=== PATIENT | female | born 1970 | race Caucasian/White ===

== ENCOUNTER 2017-02-14 11:38 | Emergency (ER) | payer MEDICAID ==
[~2017-02-14] VITALS: Ht 165.1 cm; Wt 62.2 kg
[~2017-02-14 11:38] MED LIST: CARB200T PO; CLON-364 PO; CYCL-259 PO; GEODON; HYDR50TA13 PO; LITH300T3 PO; LITHIUM; MELO-184 PO; METH750T87 PO; ROBAXIN; SULF1TAB24 PO; SULF1TAB3 PO; VENL37.52 PO; ZIPR60CA2 PO; ZOLP10TA PO
[2017-02-14 11:42] VITALS: BP 146/92
[2017-02-14] MEDS ORDERED: IBUPROFEN 200 MG TABLET PO ONE (12:30)
[2017-02-14] MEDS ORDERED: METHOCARBAMOL 750 MG TABLET PO ONE (12:30)
[2017-02-14] MEDS ORDERED: HYDROcodone/APAP 5/325 TABLET PO ONE (12:30)
[2017-02-14] MEDS ORDERED: METHOCARBAMOL 750 MG TABLET ONE (12:39)
[2017-02-14] MEDS ORDERED: HYDROcodone/APAP 5/325 TABLET ONE (12:39)
[2017-02-14] MEDS ORDERED: IBUPROFEN 200 MG TABLET ONE (12:39)
== END 2017-02-14 13:05 | disposition home or self-care (01) ==
LOC: ED 12:59
DX: S29.012A Strain of muscle and tendon of back wall of thorax, initial encounter (principal); G89.29 Other chronic pain; M54.9 Dorsalgia, unspecified; Z72.9 Problem related to lifestyle, unspecified; F20.9 Schizophrenia, unspecified; F12.10 Cannabis abuse, uncomplicated; X58.XXXA Exposure to other specified factors, initial encounter; Y93.89 Activity, other specified; Y99.8 Other external cause status; Y92.89 Other specified places as the place of occurrence of the external cause
CPT/HCPCS: 99284

== ENCOUNTER 2017-03-15 15:26 | Emergency (ER) | payer OTHER ==
[~2017-03-15] VITALS: Ht 165.1 cm; Wt 57.7 kg
[2017-03-15] MEDS ORDERED: HYDROcodone/APAP 5/325 TABLET PO ONE (16:00)
[2017-03-15] MEDS ORDERED: KETOROLAC 30 MG/1 ML IM ONE ×2 (16:00)
[2017-03-15] MEDS ORDERED: OXYcodone/APAP 5/325MG TABLET PO ONE (16:00)
[2017-03-15] MEDS ORDERED: ONDANSETRON ODT 4 MG PO ONE (16:00)
[2017-03-15] MEDS ORDERED: CYCLOBENZAPRINE 10 MG TABLET PO ONE (16:00)
[2017-03-15] MEDS ORDERED: METHOCARBAMOL 750 MG TABLET PO ONE (16:00)
[2017-03-15] MEDS ORDERED: KETOROLAC 30 MG/1 ML ONE (16:11)
[2017-03-15] MEDS ORDERED: OXYcodone/APAP 5/325MG TABLET ONE (16:11)
[2017-03-15] MEDS ORDERED: METHOCARBAMOL 750 MG TABLET ONE (16:11)
[2017-03-15 16:29] VITALS: BP 118/79
== END 2017-03-15 16:31 | disposition home or self-care (01) ==
LOC: ED 16:10
DX: M54.5 Low back pain (principal)
CPT/HCPCS: 96372; 99283; J1885

== ENCOUNTER 2017-04-24 12:47 | Emergency (ER) | payer SELFPAY ==
[~2017-04-24] VITALS: Ht 162.6 cm; Wt 55.9 kg
[~2017-04-24 12:47] MED LIST changes: -MELO-184 PO; +MELO15TA24 PO; +SULF-169 PO; -SULF1TAB3 PO
[2017-04-24 12:50] VITALS: BP 137/86
[2017-04-24] MEDS ORDERED: DEXAMETHASONE 4 MG/ML, 5ML ONE (13:18)
[2017-04-24] MEDS ORDERED: DEXAMETHASONE 4 MG/ML, 1ML PO ONE (13:30)
[2017-04-24] MEDS ORDERED: HYDROcodone/APAP 5/325 TABLET ONE (14:17)
[2017-04-24] MEDS ORDERED: HYDROcodone/APAP 5/325 TABLET PO ONE (14:30)
== END 2017-04-24 14:25 | disposition home or self-care (01) ==
LOC: ED 14:20
DX: J20.9 Acute bronchitis, unspecified (principal); B96.89 Other specified bacterial agents as the cause of diseases classified elsewhere; R05 Cough; M25.511 Pain in right shoulder; G89.29 Other chronic pain
CPT/HCPCS: 71020; 73030; 99284; J1100

== ENCOUNTER 2019-01-13 07:19 | Emergency (ER) | payer MEDICAID ==
[~2019-01-13] VITALS: Ht 165.1 cm; Wt 61.2 kg
[~2019-01-13 07:19] MED LIST changes: -CLON-364 PO; +CLON0.5T11 PO
--- NOTE | 2019-01-13 08:01 | NUR ---
Pt to ER today for 1 wk of gen. malaise, nausea & LLQ pain elicited only w/ deep palpation. Recent dx of hep C discovered when she donated blood. Has not received f/u care yet. Labs drawn, urine sent.
[2019-01-13 08:08] LABS: BASOPHILS # (AUTO) 0.04 x10^3/uL (0-0.1); BASOPHILS % (AUTO) 1 % (0-1); EOSINOPHILS # (AUTO) 0.28 x10^3/uL (0-0.4); EOSINOPHILS % (AUTO) 5 % (1-7); LYMPHOCYTES # (AUTO) 1.34 x10^3/uL (1-3.4); LYMPHOCYTES % (AUTO) 21 % (22-44); MD NO; MEAN CORPUSCULAR HEMOGLOBIN 30.2 pg (27.0-34.8); MEAN CORPUSCULAR HGB CONC 32.9 g/dL (32.4-35.8); MEAN CORPUSCULAR VOLUME 91.9 fL (80-100); MEAN PLATELET VOLUME 8.7 fL (7.4-10.4); MONOCYTES # (AUTO) 0.87 x10^3/uL (0.2-0.8); MONOCYTES % (AUTO) 14 % (2-9); NEUTROPHILS # (AUTO) 3.85 x10^3/uL (1.8-6.8); NEUTROPHILS % (AUTO) 60 % (42-75); PLATELET COUNT 264 x10^3/uL (130-400); RED CELL DISTRIBUTION WIDTH 13.3 % (9.6-15.2)
[2019-01-13 08:11] LABS: MICROSCOPIC NOT IND
[2019-01-13 08:15] LABS: CULTURE INDICATED? NO
[2019-01-13 08:18] LABS: ALANINE AMINOTRANSFERASE 172 U/L (12-78); ALBUMIN 3.3 g/dL (3.4-5.0); ANION GAP 6 mmol/L (5-15); CALCIUM 8.4 mg/dL (8.5-10.1); CHLORIDE 113 mmol/L (98-107); CREATININE 0.72 mg/dL (0.55-1.02)
[2019-01-13 08:20] LABS: ALKALINE PHOSPHATASE 75 U/L (45-117); BILIRUBIN,TOTAL 0.2 mg/dL (0.2-1.0); TOTAL PROTEIN 6.8 g/dL (6.4-8.2)
--- NOTE | 2019-01-13 08:27 | NUR ---
Medicated as per emar for nausea. Lab results pending.
[2019-01-13] MEDS ORDERED: ONDANSETRON ODT 4 MG PO ONE (08:30)
--- NOTE | 2019-01-13 09:05 | NUR ---
Nausea improved, ready for recheck.
[2019-01-13 10:57] VITALS: BP 100/58
== END 2019-01-13 10:59 | disposition home or self-care (01) ==
LOC: ED 09:21
DX: R11.2 Nausea with vomiting, unspecified (principal); F20.9 Schizophrenia, unspecified; F32.9 Major depressive disorder, single episode, unspecified
CPT/HCPCS: 36415; 80053; 80074; 81003; 83690; 84703; 85025; 87521; 99283; Q0162

== ENCOUNTER 2019-02-14 09:22 | Emergency (ER) | payer MEDICAID ==
[~2019-02-14] VITALS: Ht 165.1 cm; Wt 62.1 kg
[2019-02-14 09:40] VITALS: BP 111/70
== END 2019-02-14 12:17 | disposition home or self-care (01) ==
LOC: ED 09:57
DX: R51 Headache (principal); R11.2 Nausea with vomiting, unspecified; F25.9 Schizoaffective disorder, unspecified; F32.9 Major depressive disorder, single episode, unspecified; Z72.9 Problem related to lifestyle, unspecified
CPT/HCPCS: 36415; 80053; 85025; 96374; 96375; 99283; J1200; J2765

== ENCOUNTER 2019-03-05 20:16 | Emergency (ER) | payer MEDICAID ==
[~2019-03-05] VITALS: Ht 165.1 cm; Wt 63.2 kg
[2019-03-05 20:21] VITALS: BP 131/81
== END 2019-03-05 21:40 | disposition home or self-care (01) ==
LOC: ED 21:27
DX: M54.2 Cervicalgia (principal); M62.838 Other muscle spasm; M25.512 Pain in left shoulder; F32.9 Major depressive disorder, single episode, unspecified; Z72.9 Problem related to lifestyle, unspecified
CPT/HCPCS: 99283

== ENCOUNTER 2020-01-17 09:13 | Emergency (ER) | payer MEDICAID ==
[~2020-01-17] VITALS: Ht 165.1 cm; Wt 63.2 kg
[~2020-01-17 09:13] MED LIST changes: +CLON-364 PO; -CLON0.5T11 PO; -HYDR50TA13 PO; +HYDR50TA99 PO
[2020-01-17 09:18] VITALS: BP 136/70
[2020-01-17] MEDS ORDERED: DIPH,PERTUSS(ACELL),TET VAC/PF 0.5 ML IM-VACC ONE ×2 (09:32→10:00)
[2020-01-17] MEDS ORDERED: LIDOCAINE 1%-EPI 1:100K, 20ML ONE (09:32)
[2020-01-17] MEDS ORDERED: NEOSPORIN OINT. PKT 1 PACKET ONE (09:32)
--- NOTE | 2020-01-17 09:39 | NUR ---
R ELBOW PAIN AND LAC S/P SLIP AND FALL ON GRAVEL THIS AM. NO DEFORMITY NOTED, FULL ROM, UNKNOWN LAST TDAP
[2020-01-17] MEDS ORDERED: NEOSPORIN OINT. PKT 1 PACKET TP ONE (10:00)
[2020-01-17] MEDS ORDERED: LIDOCAINE 1%-EPI 1:100K, 20ML SQ ONE (10:00)
== END 2020-01-17 10:48 | disposition home or self-care (01) ==
LOC: ED 10:13
DX: S51.011A Laceration without foreign body of right elbow, initial encounter (principal); W01.0XXA Fall on same level from slipping, tripping and stumbling without subsequent striking against object, initial encounter; Y93.89 Activity, other specified; Y92.488 Other paved roadways as the place of occurrence of the external cause; Y99.8 Other external cause status
CPT/HCPCS: 12031; 73080; 90471; 90715; 99284; J3490; 12041

== ENCOUNTER 2020-06-10 18:36 | Emergency (ER) | payer MEDICAID ==
[~2020-06-10] VITALS: Ht 165.1 cm; Wt 53.1 kg
[2020-06-10 18:43] VITALS: BP 117/71
--- NOTE | 2020-06-10 18:50 | NUR ---
EKG COMPLETED IN TRIAGE.
[2020-06-10 19:29] LABS: BASOPHILS % (AUTO) 1 % (0-1); EOSINOPHILS % (AUTO) 4 % (1-7); LYMPHOCYTES % (AUTO) 29 % (22-44); MEAN CORPUSCULAR HEMOGLOBIN 29.7 pg (27.0-34.8); MEAN CORPUSCULAR HGB CONC 33.6 g/dL (32.4-35.8); MEAN PLATELET VOLUME 9.2 fL (7.4-10.4); MONOCYTES % (AUTO) 10 % (2-9); NEUTROPHILS % (AUTO) 56 % (42-75); PLATELET COUNT 260 x10^3/uL (130-400); RED BLOOD COUNT 5.38 x10^6/uL (3.82-5.3); RED CELL DISTRIBUTION WIDTH 14.4 % (9.6-15.2)
[2020-06-10 19:36] LABS: MD NO
[2020-06-10 19:46] LABS: ALBUMIN 3.4 g/dL (3.4-5.0); ANION GAP 6 mmol/L (5-15); CALCIUM 8.8 mg/dL (8.5-10.1); CHLORIDE 106 mmol/L (98-107); CREATININE 0.73 mg/dL (0.55-1.02)
--- NOTE | 2020-06-10 21:00 | NUR ---
not in lobby
--- NOTE | 2020-06-10 21:15 | NUR ---
not in lobby
--- NOTE | 2020-06-10 21:35 | NUR ---
not in lobby
== END 2020-06-10 21:52 ==
LOC: ED 21:49
DX: B34.9 Viral infection, unspecified (principal); R00.0 Tachycardia, unspecified
CPT/HCPCS: 36415; 80048; 82040; 85025; 93005; 99284

== ENCOUNTER 2020-11-09 20:41 | Emergency (ER) | payer MEDICAID ==
[~2020-11-09] VITALS: Ht 165.1 cm; Wt 55.8 kg
[~2020-11-09 20:41] MED LIST changes: -CYCL-259 PO; +CYCL10TA2 PO
--- NOTE | 2020-11-09 21:12 | NUR ---
PT C/O OF LEFT ARM PAIN THAT IS HARD TO MOVE SINCE A COUPLE WEEKS AGO BEGINS IN SCAPULA AND GOES DOWN ELBOW. PT SCARED OF LUMPS OR CANCER. DENIES CP, SOB, N/V/D, INJURY TO ARM AND NUMBNESS OR TINGLING IN ARM. REPORTS THROBBING PAIN LIKE SOMEONE IS TWISTING ARM. WITH EXAM NO NECK PAIN, NO GROSS DEFORMITIES. ERP AT BEDSIDE- WORKUP MORE MUSCULOSKELETAL RATHER THAN CARDIAC
--- NOTE | 2020-11-09 21:25 | NUR ---
TO RADIOLOGY ECG OBTAINED BY EMT
[2020-11-09] MEDS ORDERED: METHOCARBAMOL 750 MG TABLET ONE (21:26)
[2020-11-09] MEDS ORDERED: METHOCARBAMOL 750 MG TABLET PO ONE (21:30)
--- NOTE | 2020-11-09 21:31 | NUR ---
MEDICATED PER EMAR
[2020-11-09 22:05] VITALS: BP 138/83
--- NOTE | 2020-11-09 22:06 | NUR ---
WITH REASSESSMENT- PAIN IMPROVED TO 7/10 REVIEWED DISCHARGE POC WALKED OUT WITH SPOUSE WITH NO DIFFICULTY
== END 2020-11-09 22:09 | disposition home or self-care (01) ==
LOC: ED 21:31
DX: S46.812A Strain of other muscles, fascia and tendons at shoulder and upper arm level, left arm, initial encounter (principal); R94.31 Abnormal electrocardiogram [ECG] [EKG]; X58.XXXA Exposure to other specified factors, initial encounter; Y93.89 Activity, other specified; Y92.89 Other specified places as the place of occurrence of the external cause; Y99.8 Other external cause status
CPT/HCPCS: 93005; 99283

== ENCOUNTER 2020-11-17 21:58 | Emergency (ER) | payer MEDICAID ==
[~2020-11-17] VITALS: Ht 165.1 cm; Wt 56.7 kg
[~2020-11-17 21:58] MED LIST changes: +SULF-23 PO; -SULF1TAB24 PO
[2020-11-17 22:01] VITALS: BP 129/84
[2020-11-17] MEDS ORDERED: LIDOCAINE-MPF 1%, 5ML INFIL ONE (22:30)
[2020-11-17] MEDS ORDERED: DIPH,PERTUSS(ACELL),TET VAC/PF 0.5 ML IM-VACC ONE (22:30)
[2020-11-17] MEDS ORDERED: LIDOCAINE-MPF 1%, 5ML ONE ×2 (22:36→23:12)
[2020-11-17] MEDS ORDERED: ONDANSETRON ODT 4 MG PO ONE (23:00)
[2020-11-17] MEDS ORDERED: NEOSPORIN OINT. PKT 1 PACKET ONE (23:30)
== END 2020-11-18 00:19 | disposition home or self-care (01) ==
LOC: ED 22:09
DX: L03.113 Cellulitis of right upper limb (principal); L03.116 Cellulitis of left lower limb; L02.413 Cutaneous abscess of right upper limb; Z72.9 Problem related to lifestyle, unspecified; F17.210 Nicotine dependence, cigarettes, uncomplicated
CPT/HCPCS: 10060; 99283; 99406

== ENCOUNTER 2020-11-20 19:49 | Emergency (ER) | payer MEDICAID ==
[~2020-11-20] VITALS: Ht 165.1 cm; Wt 54.3 kg
--- NOTE | 2020-11-20 20:22 | NUR ---
BRIDAL CONSULTANT: PT TO ROOM FROM LOBBY.
[2020-11-20] MEDS ORDERED: HYDROcodone/APAP 5/325 TABLET PO ONE (20:30)
[2020-11-20] MEDS ORDERED: LIDOCAINE 1%, 10ML INFIL ONE (20:30)
[2020-11-20] MEDS ORDERED: HYDROcodone/APAP 5/325 TABLET ONE (20:37)
[2020-11-20] MEDS ORDERED: LIDOCAINE-MPF 1%, 5ML ONE (20:37)
--- NOTE | 2020-11-20 20:53 | NUR ---
PT ARGUING WITH BF IN ROOM, BOTH PARTIES YELLING AND BEING DISRUPTIVE. BF ASKED TO LEAVE. PT AGREEABLE.
[2020-11-20] MEDS ORDERED: NEOSPORIN OINT. PKT 1 PACKET ONE (21:26)
[2020-11-20 21:48] VITALS: BP 143/80
== END 2020-11-20 21:50 | disposition home or self-care (01) ==
LOC: ED 21:16
DX: L02.413 Cutaneous abscess of right upper limb (principal); L03.113 Cellulitis of right upper limb; M79.605 Pain in left leg; F17.210 Nicotine dependence, cigarettes, uncomplicated; Z72.9 Problem related to lifestyle, unspecified
CPT/HCPCS: 10060; 99283